=== PATIENT | female | born 1945 | race Caucasian/White ===

== ENCOUNTER 2020-01-28 11:13 | Inpatient (IN) | payer OTHER ==
[~2020-01-28] VITALS: Ht 149.9 cm; Wt 92.3 kg
[2020-01-28] VITALS (21 sets, daily range): BP systolic 57–113; BP diastolic 21–88
--- NOTE | ~2020-01-28 | HC ---
[facility] [place] [address] CONSULTATION Name: OTTO MORTENSEN Room #: 242-P ADM IN M.R.#: [id number] Admission: 01/28/20 Attend Phys: Gaye Forte MD Discharge: Date of : 47 Report #: [id number] THIS REPORT FOR: cc: Morgan Abraham MD,Ortiz Rodarte MD, MD ~ CC: Gaye Cooper DATE OF SERVICE: 01/29/2020 REASON FOR CONSULTATION: Acute kidney injury. REASON FOR PRESENTATION: Acute mental status changes. HISTORY OF PRESENT ILLNESS: Obtained from the medical chart, a 74-year-old who presented with unresponsive status. She saw her primary care physician last week. UA and culture was done. She was told that she had a urinary tract infection. She lives at home with son. He called the EMS concerned about her mom. Of notice is the fact that the patient's daughter was in [place] recently. She visited with her mom for about 36 hours. The patient is known to have chronic kidney disease with an atrophic left kidney and renal artery stenosis. When the patient presented yesterday, she was found to have significant hypotension and creatinine that is significantly above her baseline. I am being consulted to manage her acute kidney injury. Currently, the patient is intubated and not able to provide me with history. PAST MEDICAL HISTORY: Obtained from the medical chart: 1. Hypertension. 2. Hyperlipidemia. 3. Diabetes mellitus. 4. Recurrent C. diff. 5. Sepsis. 6. Urinary tract infections. 7. . 8. Cholecystectomy. 9. Bilateral total knee arthroplasty. 10. Renal artery stenosis. 11. CKD. SOCIAL HISTORY: Lives alone. No reported drug or alcohol abuse. ALLERGIES: AZITHROMYCIN AND DOXYCYCLINE AND PENICILLIN. REVIEW OF SYSTEMS: Unable to obtain given the patient's current mental status. [facility] [address] [place] [address] CONSULTATION Name: OTTO MORTENSEN [id number] Admission: 01/28/20 Attend Phys: Gaye Forte MD Discharge: Date of : 46 Report #: [id number] HOME MEDICATIONS: 1. Torsemide. 2. Crestor. 3. Omeprazole. 4. Metformin. 5. Recent antibiotic that the family is not aware of the name of. REVIEW OF SYSTEMS: Unobtainable given the patient's current mental status. PHYSICAL EXAMINATION: GENERAL: She is now off pressors. VITAL SIGNS: Blood pressure is 94/47. HEAD AND NECK: No jugular venous distention. ET tube in place. CHEST: Decreased air entry bilaterally. CARDIOVASCULAR: No rub detected. ABDOMEN: Soft. EXTREMITIES: Lower extremities, +1 edema. LABORATORY DATA: Values from today revealed a white blood cell count of 10.5, hemoglobin of 9.1. Blood gas of 7.4. Lactate down to 4.9. Sodium is 142, potassium is 3, BUN is 44, creatinine is 2.9. ASSESSMENT, IMPRESSION AND PLAN: 1. Acute kidney injury. 2. Severe metabolic acidosis. 3. Hypokalemia. 4. She now is off pressor and had received significant amount of fluid in the last 24 hours. She was switched to D5W with sodium bicarbonate and I will continue with that for now. 5. Empiric antibiotic had been initiated by the admitting primary team. 6. ID following. 7. Continue to watch urine output, which is significantly better than yesterday. 8. Renal function continues to improve. 9. Pulmonary managing her vent related issues. 10. We will continue to follow. By: [id number] Ortiz Hernandez MD /nt
--- NOTE | ~2020-01-28 | HC ---
[facility] [place] [address] CONSULTATION Name: OTTO MORTENSEN Room #: 242-P ADM IN M.R.#: [id number] Admission: 01/28/20 Attend Phys: Gaye Forte MD Discharge: Date of : 47 Report #: [id number] THIS REPORT FOR: cc: Morgan Abraham MD,Frederick Marion MD, MD ~ CC: Gaye Cooper DATE OF SERVICE: 02/01/2020 HISTORY OF PRESENT ILLNESS: The patient is a 74-year-old white female who was admitted to [facility] on 01/28/2020 with severe sepsis. Noted to have septic shock. She has acute hypoxic respiratory failure, acute renal insufficiency. She has lower abdominal groin cellulitis. She has VRE in her urine. She has been diagnosed with a toxic metabolic encephalopathy. She is currently intubated in the Intensive Care Unit. We are seeing her in rehabilitation medicine consultation. PAST MEDICAL HISTORY: Includes history of multiple admissions for severe sepsis, 6 or 7 admissions in the last 2 years. She has been hospitalized in the last couple of months as well. There is a past history of a questionable prior CVA. She has a history of hypertension, hyperlipidemia, prior pulmonary embolism, and atrial fibrillation. MEDICATIONS: Please see the full medication listing. ALLERGIES: PENICILLIN, SULFA, DOXYCYCLINE, CIPROFLOXACIN AND ZITHROMAX. SOCIAL HISTORY: Lives alone, house, no steps. Premorbid walker ambulator. Daughter is involved. Apparently was on 2 liters nasal prong O2 at night, premorbidly. REVIEW OF SYSTEMS: Difficult that she is rather groggy and does not follow all commands. PHYSICAL EXAMINATION: GENERAL: A 74-year-old white female seen in the Intensive Care Unit. NEUROLOGIC: She is orally intubated and mechanically ventilated. She has an indwelling Lewis catheter and has a rectal tube in place. She will fix and follow. She does follow basic 1 step commands. I can get her to programming manager with both hands with encouragement and she was able to wiggle her toes, both feet. Both her wrists are restrained. Tone appeared to be reasonably intact. She has bilateral prior knee incisions from apparently total knee replacements. She would wiggle her toes and appeared to have reasonable tone of both lower [address] [place] [address] CONSULTATION Name: OTTO MORTENSEN Room #: 242-P [facility] IN ..#: [id number] Admission: 01/28/20 Attend Phys: Gaye Forte MD Discharge: Date of : 47 Report #: [id number] extremities, although I could not get her to really move her extremities to command. ASSESSMENT: A 74-year-old white female with the following problem list: 1. Toxic metabolic encephalopathy. 2. Likely critical illness myopathy. We will need to see how things go with her recovery. 3. Severe sepsis with septic shock. 4. Acute hypoxic respiratory failure, on mechanical ventilation. 5. Acute renal insufficiency. 6. Lower abdominal/groin area cellulitis. 7. History of recurrent sepsis. 8. Diabetes mellitus. 9. History of atrial fibrillation. PLAN: We will ask PT and OT to just do some limited bedside therapies at this point, would like to gradually advance as she further stabilizes. We will be glad to follow along with you regarding her rehab therapy needs. By: 1136 1800 Frederick Bell MD /PAVAN
[2020-01-28 12:11] LABS: ANION GAP 21 mmol/L (7-16); BUN 47 mg/dL (7-18); CALCIUM 8.9 mg/dL (8.5-10.1); CHLORIDE 97 mmol/L (98-107); CO2 16 mmol/L (21-32); CREATININE 3.6 mg/dL (0.6-1.0); GLUCOSE 245 mg/dL (74-106); POTASSIUM 4.6 mmol/L (3.5-5.1); SODIUM 134 mmol/L (136-145)
[2020-01-28 12:20] LABS: ALBUMIN 3.4 g/dL (3.4-5.0); SGOT 95 U/L (15-37); SGPT 33 U/L (30-65); TOTAL BILIRUBIN 0.7 mg/dL (<0.1-1.0); TOTAL PROTEIN 7.8 g/dL (6.4-8.2); TROPONIN-I <0.06 ng/mL (<0.06)
[2020-01-28 12:23] LABS: BASOPHILS 0.3 % (0.0-2.0); EOSINOPHILS 0.1 % (0.0-3.0); HEMATOCRIT 31.3 % (37.0-47.0); HEMOGLOBIN 9.8 gm/dL (12.0-15.0); LYMPHOCYTES 0.7 % (24.0-44.0); MCH 28.2 pg (26.0-34.0); MCHC 31.2 g/dL (28.0-37.0); MCV 90.3 fL (80.0-100.0); MONOCYTES 0.9 % (1.0-8.0); PLATELET COUNT 268 thou/uL (150-400); RBC 3.47 mil/uL (4.20-5.00); RDW 19.3 % (10.5-14.5); WBC 9.1 thou/uL (4.0-11.0)
[2020-01-28 12:38] LABS: ANISOCYTOSIS 2+; OVALOCYTES 1+
[2020-01-28 13:02] LABS: APTT 22.4 Seconds (24.5-32.8); FIBRINOGEN 228.9 mg/dL (210-360); INR 1.2
[2020-01-28] MEDS ORDERED: ROSUVASTATIN CA20 MG PO (13:33)
[2020-01-28] MEDS ORDERED: PROAIR HFA8.5 GM INH (13:33)
[2020-01-28] MEDS ORDERED: METFORMIN HCL500 M3 PO (13:33)
[2020-01-28] MEDS ORDERED: XARELTO15 MG PO (13:34)
[2020-01-28] MEDS ORDERED: SYMBICORT160 MCG/4. INH (13:35)
[2020-01-28] MEDS ORDERED: OMEPRAZOLE20 M1 PO (13:35)
[2020-01-28] MEDS ORDERED: FLONASE 0.05%50 MCG NARES (13:36)
[2020-01-28] MEDS ORDERED: TORSEMIDE20 MG PO (13:36)
[2020-01-28] MEDS ORDERED: FENOFIBRATE160 MG PO (13:36)
[2020-01-28 14:01] LABS: URINE BILIRUBIN NEGATIVE (Negative); URINE BLOOD NEGATIVE (Negative); URINE CLARITY CLEAR; URINE COLOR YELLOW; URINE GLUCOSE-RANDOM* NEGATIVE (Negative); URINE KETONES NEGATIVE (Negative); URINE NITRITE-REFLEX NEGATIVE (Negative); URINE PROTEIN (DIPSTICK) 2+ (Negative); URINE UROBILINOGEN 0.2 E.U./dl (0.2-1.0)
[2020-01-28 14:02] LABS: URINE LEUKOCYTES-REFLEX 1+ (Negative)
[2020-01-28 14:07] LABS: SQUAMOUS >10 Many /LPF (0-3)
[2020-01-28 14:08] LABS: CASTS None Seen /LPF (None Seen)
[2020-01-28 14:09] LABS: BACTERIA-REFLEX 1-9 Few /HPF (None Seen); CRYSTALS None Seen /LPF (None Seen); RENAL EPITHELIAL CELLS 0-3 Few /LPF (None Seen); TRANSITIONAL EPITHEL CELL 0-3 Few /LPF (None Seen); URINE RBC 0-2 Rare /HPF (0-2); URINE WBC-REFLEX 6-15 Few /HPF (0-5)
--- NOTE | 2020-01-28 14:20 | NUR ---
VASCULAR ACCESS CONSULTED FOR PICC LINE, DISCUSSED KIDNEY FCN WITH DR ONEILL, PT IS ANXIOUS AND RESTLESS,PICC DETERMINED SAFER. BP LOW. ORDER,LABS,CONSENT VERIFIED. DISCUSSED BENEFITS AND RISK OF PICC WITH DAUGHTER, VERBALIZED UNDERSTANDING. NIALL CEPHALIC WAS WIDELY PATENT WITH USG. 5FR TL POWER PICC TRIMMED TO 40CM INSERTED TO 0CM. STAT CXR CONFIRMED PLACEMENT AT S[facility]. PICC RELEASED FOR IMMEDIATE USE TO JOON WILSON PER PROTOCOL
[2020-01-28 16:35] LABS: BE(vivo) -15.8 mmol/L (-2 to +3); HCO3 10.9 mmol/L (22.0-26.0); PCO2 28.6 mmHg (35.0-45.0); PO2 377.6 mmHg (80.0-100.0); pH 7.199 (7.360-7.450); sO2 99.7 % (92.0-98.0)
[2020-01-28 20:43] LABS: CALCIUM 6.7 mg/dL (8.5-10.1); POTASSIUM 3.6 mmol/L (3.5-5.1)
[2020-01-28 20:45] LABS: BE(vivo) -9.7 mmol/L (-2 to +3); HCO3 14.3 mmol/L (22.0-26.0); PCO2 25.8 mmHg (35.0-45.0); PO2 361.1 mmHg (80.0-100.0); pH 7.362 (7.360-7.450); sO2 99.8 % (92.0-98.0)
--- NOTE | 2020-01-28 20:57 | NUR ---
PT TO ICU ACCOMPANIED BY DR ALCALA. RESP RATE IN 40-50'S. PURPLISH DISCOLORATION NOTED TO HANDS AND FEET AND COLOR DUSKY. DIFFICULTY OBTAINING BP. PT VERY RESTLESS. DR ALCALA AT BEDSIDE AND DISCUSSED INTUBATION WITH PT'S DAUGHTER AND SHE IS IN AGREEMENT WITH INTUBATION. INTUBATED PT AT 1545. THIERRY PLACED BY DR ALCALA AT 1615. OG TUBE PLACED AT 800ML OF LIGHT GREEN DRAINED QUICKLY THROUGH OG TUBE. CONSULT PLACED TO DR JAFFE. SPOKE WITH HIM BY PHONE AND IV FLUID BOLUSES GIVEN ORDERED. AT [address] JAFFE AND UPDATED ON PT STATUS, GTTS, URINE OUTPUT, AND PREVIOUS ABG'S. PT ON LEVOPHED AND TITRATING TO KEEP MAP >65. ADDITIONAL FLUID BOLUSES ORDERED AND STARTED. ABG'S DONE FOLLOWING INTUBATION AND CRITICAL RESULTS CALLED TO DR ALCALA. 4 AMPS BICARB GIVEN AND STARTED ON BICARB GTT. PT RESTLESS ATTEMTPING TO PULL AT LINES. STARTED ON VERSED GTT AND BILAT WRIST RESTRAINTS PLACED. DISCUSSED WITH PT'S DAUGHTER. SPOT CHECKING CVP AND READING 9 WITH EACH HOURLY CHECK THIS AFTERNOON. LABS SENT AT 1830. RVP AND MRSA SWAB SENT. REPORT GIVEN TO INTERMISSION COORDINATOR RN.
[2020-01-28 23:51] LABS: POTASSIUM 3.2 mmol/L (3.5-5.1)
[2020-01-28 23:59] LABS: CALCIUM 5.9 mg/dL (8.5-10.1)
[2020-01-29] VITALS (19 sets, daily range): BP systolic 83–121; BP diastolic 44–69
[2020-01-29 00:56] LABS: BE(vivo) -6.9 mmol/L (-2 to +3); HCO3 17.2 mmol/L (22.0-26.0); PCO2 29.7 mmHg (35.0-45.0); PO2 246.6 mmHg (80.0-100.0); pH 7.381 (7.360-7.450); sO2 99.6 % (92.0-98.0)
[2020-01-29 03:13] LABS: CALCIUM 7.4 mg/dL (8.5-10.1); POTASSIUM 3.2 mmol/L (3.5-5.1)
[2020-01-29 05:02] LABS: BE(vivo) -2.8 mmol/L (-2 to +3); PCO2 32.8 mmHg (35.0-45.0); PO2 142.1 mmHg (80.0-100.0); pH 7.424 (7.360-7.450); sO2 98.9 % (92.0-98.0)
--- NOTE | 2020-01-29 05:20 | NUR ---
NO OVERNIGHT EVENTS. PT. RESTING WELL WITH LIGHT SEDATION FOR VENT MANAGEMENT. OVERALL PT. IS MORE STABLE, NEEDING LESS BLOOP PRESSURE SUPPORT THROUGHOUT NIGHT AND LESS O2. LESS TACHCARDIC AND TOLERATING ORAL CARE AND TURNS BETTER. ASSESSMENTS AND VITAL SIGNS CHARTED. MEDICATION TITRATION CHARTED. FMS IN PLACE AT THIS TIME FOR FREQUENT MUCOUS LOOSE STOOLS. CDIFF SAMPLE SENT DOWN TO LAB. PT. IS SLOWLY PROGRESSING TOWARDS GOALS. CONTINUE CURRENT POC. WILL CONTINUE TO MONITOR.
[2020-01-29 05:33] LABS: ABSOLUTE NEUTROPHILS 10.2 thou/uL (1.4-8.2); BASOPHILS 0.3 % (0.0-2.0); EOSINOPHILS 0.2 % (0.0-3.0); HEMATOCRIT 28.1 % (37.0-47.0); HEMOGLOBIN 9.1 gm/dL (12.0-15.0); LYMPHOCYTES 0.7 % (24.0-44.0); MCH 28.1 pg (26.0-34.0); MCHC 32.2 g/dL (28.0-37.0); MCV 87.5 fL (80.0-100.0); MONOCYTES 1.8 % (1.0-8.0); RBC 3.22 mil/uL (4.20-5.00); RDW 19.2 % (10.5-14.5); WBC 10.5 thou/uL (4.0-11.0)
[2020-01-29 05:34] LABS: PLATELET COUNT 164 thou/uL (150-400)
[2020-01-29 05:41] LABS: CREATININE 2.9 mg/dL (0.6-1.0)
--- NOTE | 2020-01-29 13:24 | HC ---
[facility] [place] [address] CONSULTATION Name: OTTO MORTENSEN Room #: 242-P ADM IN M.R.#: [id number] Admission: 01/28/20 Attend Phys: Gaye Forte MD Discharge: Date of : 46 Report #: [id number] THIS REPORT FOR: cc: Morgan Abraham MD,Jayant Raymundo MD, MD ~ CC: Gaye Cooper DATE OF SERVICE: 01/28/2020 INFECTIOUS DISEASE CONSULTATION REASON FOR CONSULTATION: I was asked to evaluate concerning septic shock. HISTORY OF PRESENT ILLNESS: The patient is a 74-year-old with underlying coronary artery disease and congestive heart failure with chronic kidney disease and diabetes. She has been in and out of hospital several times in the last year with congestive heart failure and urinary tract infection. Had a prolonged hospitalization in November and has been home only for 2 weeks after that prolonged stay, both acute care and post-acute care. Over the last week, she has had some urinary discomfort. She had a urinalysis and urine culture performed in the outpatient clinic and was called back yesterday with report of possible urinary tract infection and was prescribed nitrofurantoin. She took one dose of this. Last evening, developed dizziness and started vomiting. She has also had liquid stool. Did not report much abdominal pain. History was given by her daughter who was a good historian. She has had no cough or sputum production. She has had pelvic rash; longstanding, which has worsened over the last several days. There has been no chest pain. She describes no peripheral edema. Full 14-point review of system was negative other than what has been described above. The patient does have chronic kidney disease with 60% stenosis of the left renal artery and a poorly functioning left kidney by imaging studies. The patient was visited by her daughter who lives in [place] who stayed with her for 36 hours. She did use precautions with distancing from her mother. Was not ill and did not wear mask. PAST MEDICAL HISTORY: Hypertension, hyperlipidemia, PE, diabetes, recurrent septic episodes with C. difficile colitis, urinary tract infection, congestive heart failure, acute cholecystitis, prior stroke, cholecystectomy, , total knee arthroplasties bilaterally. FAMILY HISTORY: [place] [address] CONSULTATION Name: OTTO MORTENSEN Room #: 242-P [facility] IN .R.#: [id number] Admission: 01/28/20 Attend Phys: Gaye Forte MD Discharge: Date of : 47 Report #: [id number] SOCIAL HISTORY: Lives alone, has a pet dog. Nonsmoker. No significant alcohol intake. No HIV risk factors. No travel. ALLERGIES: AZITHROMYCIN, CIPROFLOXACIN, DOXYCYCLINE, PENICILLIN AND SULFA; reactions not known. MEDICATIONS: As noted on her MAR, which were reviewed; currently on vancomycin and meropenem. PHYSICAL EXAMINATION: VITAL SIGNS: Currently afebrile. Pulse is 133, blood pressure 74/51. GENERAL: It is noted that the patient has not had any fever, chills or sweats predating her hospital stay. SKIN: With intertrigo to her pelvis, both anterior and posterior. She has a fairly large abdominal pannus and there was dermatitis beneath this as well. No other decubiti. No palpable adenopathy. Moderately obese. HEENT: Eyes without scleral icterus. Mouth without mucositis and was dry. NECK: Supple. No thyromegaly or mass. LUNGS: Clear to auscultation. HEART: Tachycardic and regular without appreciable murmur, gallop or rub. ABDOMEN: Mildly distended and mild diffuse tenderness without guarding or rebound. There were no appreciable masses or hepatosplenomegaly. GENITOURINARY: External genitalia without lesion and an indwelling Lewis catheter with clear urine. Perianal examination with hemorrhoids. Rectal examination was not performed. EXTREMITIES: Without clubbing, cyanosis or edema. Was able to move all extremities. NEUROLOGIC: Cranial nerves were intact. Mood was lethargic, but able to follow simple commands. LABORATORY STUDIES: Reviewed. Microbiology reports were reviewed. CT scan of the chest, abdomen and pelvis revealed mild lower lung infiltrates versus atelectasis with mild distention of the stomach and small bowel without definite obstruction, diverticulosis, cardiomegaly with calcified coronary artery disease. No evidence of abscess. No changes consistent with coronavirus. IMPRESSION: 1. Septic shock, source of which is gastrointestinal, most likely with ischemia considering she has had recurring episodes of sepsis. Currently, no evidence of urinary tract obstruction. Her urinalysis was fairly unremarkable. Possible early pulmonary infiltrates or aspiration. At the time of intubation, there was no evidence of foreign body in the upper airways or purulent secretions. [facility] [address] [place] [address] CONSULTATION Name: OTTO MORTENSEN Room #: 242-P [facility] IN M.R.#: [id number] Admission: 01/28/20 Attend Phys: Gaye Forte MD Discharge: Date of : 46 Report #: [id number] 2. Lactic acidosis. 3. Respiratory failure. 4. Encephalopathy. 5. Recurrent urinary tract infections. 6. Hypertrophic left kidney with chronic kidney disease and peripheral vascular disease. 7. Coronary artery disease. RECOMMENDATIONS: We will continue broad antibiotic coverage with nosocomial treatment considering her recent hospital stay. Check viral respiratory panel, sputum, blood, stool and urine cultures. Check C. diff, PCR and treat for such. The patient will require full ICU support. Discussed the case with attending marble finisher and nursing staff along with the patient's family. The patient remains critically ill in this situation. [place] is guarded. <ELECTRONICALLY SIGNED> By: Jayant Colby MD 01/29/20 1324 1613 [id number] Jayant Colby MD /nt
--- NOTE | 2020-01-29 13:35 | NUR ---
SPOKE WITH PT'S DAUGHTER MANJULA BY PHONE THIS AM AND UPDATED HER. TITRATING LEVOPHED AND VASOPRESSIN TO KEEP MAP >60. 1 EPISODE OF PT HAVING SHORT PERIOD OF A FLUTTER IN 70'S AND SBP DROPPED TO 50'S DURING THIS TIME. TITRATED PRESSORS UP AND DR ALCALA NOTIFIED. BP IMPROVED WHEN PT RETURNED TO NSR. RVP NEG. DROPLET ISO DISCONTINUED. PT HAVING LARGE GREEN MUCOUS STOOLS TODAY. SEDATION VACATION ATTEMPTED BUT PT DID NOT TOLERATE. WILL CONTINUE TO MONITOR PATIENT.
[2020-01-29 13:45] LABS: CALCIUM 6.8 mg/dL (8.5-10.1); CREATININE 2.5 mg/dL (0.6-1.0); POTASSIUM 3.3 mmol/L (3.5-5.1)
[2020-01-30] VITALS (69 sets, daily range): BP systolic 84–127; BP diastolic 49–78
[2020-01-30 04:05] LABS: ABSOLUTE NEUTROPHILS 8.5 thou/uL (1.4-8.2); BASOPHILS 0.2 % (0.0-2.0); EOSINOPHILS 0.3 % (0.0-3.0); HEMATOCRIT 27.2 % (37.0-47.0); HEMOGLOBIN 8.8 gm/dL (12.0-15.0); LYMPHOCYTES 2.2 % (24.0-44.0); MCH 28.2 pg (26.0-34.0); MCHC 32.5 g/dL (28.0-37.0); MCV 86.8 fL (80.0-100.0); MONOCYTES 1.5 % (1.0-8.0); PLATELET COUNT 131 thou/uL (150-400); POLYS 95.8 % (36.0-66.0); RBC 3.14 mil/uL (4.20-5.00); RDW 19.6 % (10.5-14.5); WBC 8.8 thou/uL (4.0-11.0)
[2020-01-30 04:37] LABS: ALBUMIN 2.1 g/dL (3.4-5.0); CALCIUM 6.3 mg/dL (8.5-10.1); CREATININE 2.3 mg/dL (0.6-1.0); PHOSPHORUS 3.8 mg/dL (2.5-4.9)
[2020-01-30 04:40] LABS: POTASSIUM 2.5 mmol/L (3.5-5.1)
--- NOTE | 2020-01-30 07:17 | NUR ---
RECIEVED REPORT FROM RADHA. PT SEDATED ON VERSED. REDRAWS FROM PAIN. TOLERATING VENT SETTINGS. TITRATED OF LEVOPHED. CURRENTLY ON VASOPRESSIN FOR BP SUPPORT. URINE OUTPUT GREATER THAN 30CC/HR. INSULIN GTT ONGOING. FMS IN PLACE, OUTPUT NOTED. PT SLOWLY PROGRESSING TOWARDS GOAL. WILL CONTINUE TO MONITOR.
--- NOTE | 2020-01-30 09:36 | NUR ---
pt remains on vent, no family at bedside. will cont following as needed for dc needs. per chart pt independent prior to hospital, with co of dizziness.
--- NOTE | 2020-01-30 09:40 | EKG ---
[facility] [place] [address] ELECTROCARDIOGRAM REPORT Name: OTTO MORTENSEN Room #: 242-P ADM IN M.R.#: [id number] Admission: 01/28/20 Attend Phys: Gaye Forte MD Discharge: Date of : 46 Report #: [id number] THIS REPORT FOR: cc: Morgan Abraham MD, Douglas James MD Lundgren,Juventino Munson MD [facility] ~ THIS REPORT FOR: //name// [facility] ED Test Date: 2020-01-28 Test Time: 11:59:36 Pat Name: OTTO MORTENSEN Department: Room: 242 Gender: F Wood Room Hand: KATHERINE : 1945 Requested By: Vielka Worthy Order Number: [id number] MD: Juventino Trinh Measurements Intervals Caret Rate: 120 P: 0 AL: 176 QRS: -7 QRSD: 74 T: 221 QT: 327 QTc: 462 Interpretive Statements Sinus tachycardia Nonspecific ST segment abnormality No previous ECG available for comparison Electronically Signed On 01-30-2020 9:38:53 CDT by Juventino Trinh [email or web address] <ELECTRONICALLY SIGNED> By: Juventino Trinh MD, FAC 01/30/20 0938 1159 1159 Juventino Trinh MD, [facility] /EPI
--- NOTE | 2020-01-30 10:03 | 2DMMODE ---
[facility] [place] [address] 2 D/M-MODE ECHOCARDIOGRAM Name: OTTO MORTENSEN Room #: 242-P ADM IN M.R.#: [id number] Admission: 01/28/20 Attend Phys: Gaye Forte MD Discharge: Date of : 46 Report #: [id number] THIS REPORT FOR: cc: Morgan Abraham MD, Douglas James MD Mancuso, Gerald M. MD [facility] ~ APPROVED REPORT Study performed: 01/30/2020 09:06:37 EXAM: Comprehensive 2D, Doppler, and color-flow Echocardiogram Patient Location: ICU Room #: 242 Status: routine BSA: 1.86 HR: 75 bpm BP: 110/59 mmHg Rhythm: Atrial Fibrillation Other Information Study Quality: Adequate Indications Congestive Heart Failure Diabetes Atrial Fibrillation 2D Dimensions RVDd: 27.99 mm IVSd: 11.81 (7-11mm) LVOT Diam: 18.80 (18-24mm) LVDd: 39.51 mm PWd: 13.49 (7-11mm) Ascending Ao: 29.64 (22-36mm) LVDs: 30.54 (25-40mm) Aortic Root: 24.79 mm IVC: 18.00 mm Volumes Left Atrial Volume (Systole) Single Plane 4CH: 46.25 mL Single Plane 2CH: 40.33 mL LA ESV Index: 25.00 mL/m2 Aortic Valve AoV Peak Jordin.: 1.09 m/s AO Peak Gr.: 4.79 mmHg LVOT Max P.75 mmHg LVOT Max V: 0.83 m/s [facility] [address] [address] 2 D/M-MODE ECHOCARDIOGRAM Name: OTTO MORTENSEN Room #: 242-P [facility].#: [id number] Admission: 01/28/20 Attend Phys: Vinay Garcia Discharge: Date of : 47 Report #: [id number] SHAKIRA Vmax: 2.10 cm2 Mitral Valve MV Decel. Time: 169.44 ms MV E Max Jordin.: 0.89 m/s IVRT: 95.35 ms Pulmonary Valve PV Peak Jordin.: 0.67 m/s PV Peak Gr.: 1.82 mmHg Tricuspid Valve TR Peak Jordin.: 2.76 m/s TR Peak Gr.: 30.55 mmHg Left Ventricle The left ventricle is normal size. Mild concentric left ventricular hypertrophy. Left ventricular systolic function is borderline. LVEF is 50-55%. This study is not technically sufficient to allow evaluation of the LV diastolic function due to atrial fibrillation. Right Ventricle The right ventricle is normal size. The right ventricular systolic function is normal. Atria The left atrium size is normal. The right atrium size is normal. Aortic Valve The aortic valve is normal in structure. Trace aortic regurgitation. There is no aortic valvular stenosis. Mitral Valve Mild mitral annular calcification. Moderate mitral regurgitation. No evidence of mitral valve stenosis. Tricuspid Valve The tricuspid valve is normal in structure. Moderate to severe tricuspid regurgitation. PAP is estimated at 36-41mmHg. Pulmonic Valve The pulmonary valve is normal in structure. Trace pulmonic regurgitation. Great Vessels [facility] [address] [place] [address] 2 D/M-MODE ECHOCARDIOGRAM Name: OTTO MORTENSEN Room #: 242-P [facility].#: [id number] Admission: 01/28/20 Attend Phys: Vinay Garcia Discharge: Date of : 47 Report #: [id number] The aortic root is normal in size. The inferior vena cava is normal in size; unable to assess inspiratory collapse due to patient on a ventilator. Pericardium There is no pericardial effusion. <Conclusion> The left ventricle is normal size. Left ventricular systolic function is borderline. LVEF is 50-55%. This study is not technically sufficient to allow evaluation of the LV diastolic function due to atrial fibrillation. The right ventricle is normal size. The left atrium size is normal. Trace aortic regurgitation. Mild mitral annular calcification. Moderate mitral regurgitation. Moderate to severe tricuspid regurgitation. PAP is estimated at 36-41mmHg. The aortic root is normal in size. There is no pericardial effusion. <ELECTRONICALLY SIGNED> By: Bobby Baca MD, FACC 01/30/201000 00 00 Bobby Baca MD, [facility] /INF
--- NOTE | 2020-01-30 10:25 | NUR ---
WOUND CONSULT; ROUNDING WITH HARSHAD VILLATORO MSN. LEFT BUTTOCKS WOUNDS IDENTIFIED. LIKLEY SHEARING INJURY E/B IRREGULAR BOARDERS, AND LINIAR LINES. REDISH PINK FWOUND BEDS WITH NO S/S OF INFECTION. THE RIGHT FOREARM HAS TWO BRUISES OR DTI? SKIN IS INTACT. RECOMMENDATIONS; 1- RIGHT F/A PAINT WITH BETADINE. 2- LEFT BUTTOCKS X 2 ZGUARD 3-Q1H TURNING RN PRESENT
[2020-01-30 10:33] LABS: MAGNESIUM 1.9 mg/dL (1.8-2.4)
--- NOTE | 2020-01-30 10:33 | NUR ---
If unable to extubate, recommend start enteral nutrition of vital high protein at goal of 55ml/hr
[2020-01-30 10:58] LABS: BE(vivo) -12.8 mmol/L (-2 to +3); HCO3 10.7 mmol/L (22.0-26.0); PCO2 19.3 mmHg (35.0-45.0); PO2 90.3 mmHg (80.0-100.0); pH 7.361 (7.360-7.450)
[2020-01-30 10:59] LABS: sO2 96.9 % (92.0-98.0)
--- NOTE | 2020-01-30 12:30 | HC ---
[facility] [place] [address] CONSULTATION Name: OTTO MORTENSEN Room #: 242-P ADM IN M.R.#: [id number] Admission: 01/28/20 Attend Phys: Gaye Forte MD Discharge: Date of : 47 Report #: [id number] THIS REPORT FOR: cc: Morgan Abraham MD,Arianna Toure MD, MD ~ CC: Gaye Cooper DATE OF SERVICE: 01/29/2020 ENDOCRINE CONSULTATION NOTE CONSULTING PHYSICIAN: Dr. Gaye Forte. REASON FOR CONSULTATION: Type 2 diabetes mellitus. HISTORY OF PRESENT ILLNESS: This is a 74-year-old female patient whose medical background is significant for multiple medical issues including hypertension, hyperlipidemia, atrial fibrillation, history of PE as well as prior issues with severe sepsis. The patient presented to the ER yesterday with progressive lethargy, tiredness, weakness, dizziness, and was found upon arrival to be in septic shock. The patient was subsequently admitted to the ICU for further care and monitoring. She was shortly thereafter mechanically ventilated as she was in impending respiratory failure with a high respiratory rate. Again, the patient's background is significant for type 2 diabetes mellitus and she is reportedly on a regimen of metformin 500 mg b.i.d. Again, as the patient is currently mechanically ventilated, it was not possible to acquire a sense of her degree of control at home and whether or not she had developed end-organ diabetic complications over the years. The patient is known to have hyperlipidemia and is maintained on rosuvastatin 20 mg daily as well as fenofibrate 160 mg daily. REVIEW OF SYSTEMS: Acquired from medical records, family and staff. CONSTITUTIONAL: Fatigue, tiredness, generalized weakness, but not particular issues with fever or chills. HEENT: Negative for sore throat, sinus pain, ear drainage. PULMONARY: Shortness of breath, cough, but not hemoptysis. CARDIAC: Dizziness, lightheadedness, palpitations, but not chest pain. GASTROINTESTINAL: Abdominal discomfort, nausea, but not vomiting. NEUROLOGY: Dizziness, lightheadedness, generalized weakness. No seizure activity or loss of consciousness. PSYCHIATRIC: No delusions or hallucinations. Otherwise, her review of system [address] [address] CONSULTATION Name: OTTO MORTENSEN Room #: 242-P [facility] IN ..#: [id number] Admission: 01/28/20 Attend Phys: Gaye Forte MD Discharge: Date of : 47 Report #: [id number] is noncontributory unless mentioned in HPI. PAST MEDICAL HISTORY: 1. Type 2 diabetes mellitus. 2. Hyperlipidemia. 3. Hypertension. 4. Atrial fibrillation. 5. History of PE. 6. Recurrent septic episodes. 7. Prior CVA. 8. Asthma. 9. GERD. 10. Congestive heart failure. PAST SURGICAL HISTORY: Cholecystectomy, , knee surgeries. OUTPATIENT MEDICATIONS: Include metformin 500 mg b.i.d., rosuvastatin 20 mg daily, albuterol p.r.n., Xarelto 15 mg daily, omeprazole 20 mg daily, Symbicort for asthma, torsemide 20 mg b.i.d., fenofibrate 160 mg daily, Flonase as needed daily. ALLERGIES: PENICILLIN, AZITHROMYCIN, CIPROFLOXACIN, DOXYCYCLINE AND SULFA. FAMILY HISTORY: Noncontributory. SOCIAL HISTORY: The patient lives alone. There is no report of active tobacco or alcohol use. PHYSICAL EXAMINATION: GENERAL: An elderly female patient who is sedated, ventilated. VITAL SIGNS: Blood pressure is 94/47 mmHg, heart rate is 97 beats per minute, respiration 23 per minute, and temperature 35.9 degrees. CONSTITUTIONAL: The patient is sedated and mechanically ventilated, not in apparent pain or distress. HEENT: Anicteric sclerae. NECK: Supple, no carotid bruits, no thyromegaly. CHEST: Noted for moderate entry bilaterally with scattered rales and rhonchi. HEART: Regular rate and rhythm without murmurs or gallops. ABDOMEN: Soft, lax. No guarding. Active bowel sounds. EXTREMITIES: Lower extremity exam, trace ankle edema bilaterally. No skin breaks or ulcerations. NEUROLOGIC: Sedated, unable to cooperate with neurological examination. PSYCHIATRIC: Sedated, unable to cooperate with psych exam. LABORATORY DATA: Blood glucose on arrival was at 193 and has been consistently under 160 mg/dL on IV insulin use. Sodium 142, potassium 3.0, chloride 106, [place]2 [place] [address] CONSULTATION Name: OTTO MORTENSEN Room #: 242-P [facility] IN ..#: [id number] Admission: 01/28/20 Attend Phys: Gaye Forte MD Discharge: Date of : 47 Report #: [id number] 21, anion gap 15, it was a 21 on arrival. BUN 44, creatinine 2.9, was 3.6 on arrival. Glucose as noted above. Total bilirubin 0.7, calcium 7.0, alkaline phosphatase 53, ALT 33, total protein 7.8, albumin 3.4. Lactic acid 4.0. EGFR 16. Troponin negative. INR 1.2. White blood count 3.22, hemoglobin 9.1, hematocrit 28.1, and platelets 164. Influenza swab negative for influenza A and influenza B. IMAGING DATA: CT scan of the head was noted for no acute intracranial abnormality, but age-related atrophy and mild chronic microvascular ischemia. CT of the abdomen and pelvis is noted for possible gastroenteritis, mild stomach and small bowel fluid distention, bilateral lung mild infiltration versus atelectasis, mild distal colonic diverticulosis, mild cardiomegaly with calcified coronary artery arterial tree limited study somewhat. ASSESSMENT AND PLAN: 1. Type 2 diabetes mellitus. As noted above, the patient has a longstanding history of type 2 diabetes mellitus. Given her current sedated and intubated state, it is not yet possible to get an accurate sense of her degree of control at baseline. However, I will obtain a hemoglobin A1c to better evaluate that aspect. It is noted that the patient is maintained on metformin monotherapy and while her blood glucose values were close to target range on arrival, she was on lactic acidosis and as such, she is certainly not safe to remain on metformin and that would actually amount to future concerns over resuming metformin therapy at any point in time. The patient was appropriately started and maintained on IV insulin therapy with which she is currently under adequate control. Her current insulin requirement ranges 1-2 units per hour intravenously. In the immediate setting, I would like to continue with intravenous insulin support, dextrose support, hourly blood glucose monitoring as per the [facility] intravenous insulin protocol. Once clinical stability is obtained, a consideration will be made to switching the patient over to other lines of therapy. 2. Septic shock. The patient presented in septic shock with a possible urological source. She is currently being medicated with vancomycin. I will defer this aspect of care to the primary team. 3. Respiratory failure. The patient was very tachypneic yesterday with respiratory rate in the 40s, and impending respiratory failure. She was mechanically intubated and continues to be so. The pulmonary team is following. 4. Hyperlipidemia. The patient is maintained on a combination of rosuvastatin and fenofibrate. I would hold off on resuming these until the patient is [facility] [address] [place] [address] CONSULTATION Name: OTTO MORTENSEN Room #: 242-[facility] IN ..#: [id number] Admission: 01/28/20 Attend Phys: Gaye Forte MD Discharge: Date of : 47 Report #: [id number] further stable. 5. Hypocalcemia. This is significant with a normal albumin. I will investigate this further with ionized calcium, vitamin D, and magnesium levels. I have reviewed the patient's clinical care notes, laboratory data, radiologic data and other pertinent information for over 35 minutes. I appreciate this consultation by Dr. Forte. <ELECTRONICALLY SIGNED> By: Arianna Pena MD 01/30/20 1230 1346 [id number] Arianna Pena MD /nt
[2020-01-30 16:34] LABS: CALCIUM 6.8 mg/dL (8.5-10.1); CREATININE 1.8 mg/dL (0.6-1.0); POTASSIUM 3.2 mmol/L (3.5-5.1)
[2020-01-30 22:10] LABS: APTT 29.4 Seconds (24.5-32.8); INR 1.1; PROTIME 11.4 Seconds (9.3-11.4)
[2020-01-31] VITALS (48 sets, daily range): BP systolic 86–132; BP diastolic 51–86
[2020-01-31 05:09] LABS: ALBUMIN 2.1 g/dL (3.4-5.0); CALCIUM 6.5 mg/dL (8.5-10.1); CREATININE 1.5 mg/dL (0.6-1.0); PHOSPHORUS 2.1 mg/dL (2.5-4.9); POTASSIUM 3.5 mmol/L (3.5-5.1)
[2020-01-31 05:40] LABS: HCO3 25.4 mmol/L (22.0-26.0); PCO2 34.9 mmHg (35.0-45.0); PO2 173.6 mmHg (80.0-100.0); sO2 99.3 % (92.0-98.0)
--- NOTE | 2020-01-31 07:00 | NUR ---
Pt remains stable. She still not waking up this morning. Last versed was given at 1940 pm last night. Off pressor since 5 am, so far her MAP has been >65 mmHg. Charlotte TF, accu check obtained per hyperglycemic protocol.FMS inplaced. Start heparin gtt last night, no s/sx of any active bleeding indicates. Monitor APTT per protocol. She is slowly progressing toward goals. Report is hand of to on coming nurse.
--- NOTE | 2020-01-31 14:07 | NUR ---
PT IN ICU WAS NOTIFIED BY SOFIA WITH [facility] THAT PT IS ON SERVICE WITH THEM PRIOR TO ADM. FAXED CLINICAL UPDATE RECEIVED CONFIRMATION. DP TO FOLLOW.
--- NOTE | 2020-01-31 16:47 | NUR ---
PATIENT WILL BE SEEN FOR REHAB CONSULT BY DOCTOR CHINCHILLA OR GALO MCMANUS NP WITH DR. CHINCHILLA, AFTER PATIENT TRANSERS OUT OF ICU. WILL CONTINUE TO FOLLOW. THANK YOU FOR THIS REFERRAL.
--- NOTE | 2020-01-31 18:40 | NUR ---
RECEIVED PT'S CARE AROUND 0700; PT. ON BED; INTUBATED; RESPONSED TO PAIN; DURING AM ASSESSMENT PT. DROWSY; SEDATION STOPPED THE NIGHT BEFORE PER REPORT; VS WNL; AM MEDICATIONS; FEEDING RATE ADJUSTED TO GOAL AT NOON; WATER FLUSHED; INSULIN GTT TITRATE BASE ON BS; CHECK CHARTING; HEPARIN GTT ADJUSTED BASED ON APTT; CHECK CHARTING; THROUGH THE DAY TURNED FROM SIDE TO SIDE Q1H; WOUND CARE PERFORMED; FEEDING RESIDUAL 40 ML; DURING AFTERNOON PT. ABLE TO OPEN EYES WHILE TURNING; ST. NO PAIN; ASKED IF KNOWN WHERE SHE IS; PT. SHAKE HEAD FROM SIDE TO SIDE; NOTIFIED ABOUT BEING IN THE HOSPITAL DUE TO INFECTION; PT. CLOSE EYES; ASSESSMENT CHARGED; FOLLOWING POC; WILL PASS ON REPORT;
[2020-02-01] VITALS (24 sets, daily range): BP systolic 111–158; BP diastolic 56–91
[2020-02-01 04:27] LABS: HEMATOCRIT 26.4 % (37.0-47.0); HEMOGLOBIN 8.2 gm/dL (12.0-15.0); MCH 27.3 pg (26.0-34.0); MCHC 31.1 g/dL (28.0-37.0); MCV 87.7 fL (80.0-100.0); RBC 3.01 mil/uL (4.20-5.00); RDW 19.7 % (10.5-14.5); WBC 6.6 thou/uL (4.0-11.0)
[2020-02-01 04:52] LABS: CALCIUM 7.6 mg/dL (8.5-10.1); CREATININE 1.2 mg/dL (0.6-1.0)
[2020-02-01 04:53] LABS: POTASSIUM 2.3 mmol/L (3.5-5.1)
--- NOTE | 2020-02-01 05:13 | NUR ---
PT MAKING PROGRESS TOWARDS GOALS. ON VENTILATOR OVERNIGHT. NO VENTILATOR ALARMS NOTED. PT OPENING EYE SPONTANEOUSLY, TRACKING WITH HER EYES WELL. PT ABLE TO FOLLOW INSTRUCTIONS ACCURATELY, TO SQUEEZE MY HAND, LET GO AND MAKE A FIST. URINE OUTPUT CLEAR AND YELLOW. NOTED URINE CX REPORT FROM YESTERDAY MORNING REPORTS "VRE." CONTACT ISOLATION STARTED. PT TOLERATING TUBE FEEDING. MAX RESIDUAL NOTED TO BE 30ML. SEE CHARTING.
--- NOTE | 2020-02-01 10:40 | NUR ---
WOUND CARE F/U; ROUNDING WITH RN TODAY. THE LEFT BUTTOCKS WOUND SHOW GREAT IMPROVEMENT. NO S/S OF INFECTION. NO CHANGES RN PRESENT
[2020-02-01 10:54] LABS: APTT 42.7 Seconds (24.5-32.8); INR 1.1; PROTIME 10.9 Seconds (9.3-11.4)
[2020-02-02] VITALS (24 sets, daily range): BP systolic 115–152; BP diastolic 51–93
[2020-02-02 05:37] LABS: CALCIUM 8.3 mg/dL (8.5-10.1)
[2020-02-02 05:48] LABS: POTASSIUM 2.4 mmol/L (3.5-5.1)
--- NOTE | 2020-02-02 06:09 | NUR ---
ASSUMED PT CARE AT 1900. VSS. PT INTUBATED BUT NOT SEDATED. CAN FOLLOW COMMANDS, WRITES ON BOARD TO COMMUNICATES NEEDS. INSULIN GTT TITRATED PRN. PT K HAS BEEN CRITICALL ALL NOC, REPLACEMENT ONGOING. PT HAD OVER 4200ML OUT THIS SHIFT FROM [facility]. PT IS STABLE AT THIS TIME. WILL CONTINUE TO CLOSE;Y MONITOR. PT APPEARS TO BE PROGRESSING WELL TOWARDS POC.
--- NOTE | 2020-02-02 11:21 | NUR ---
PT DISCHARGING TODAY TO HOME AT [facility] WITH ALY MOMIN. FAXED DC ORDERS/SUMMARY SPOKE WITH LEELA IN INTAKE SHE RECEIVED ORDERS AND WILL NOTIFY PT TIME OF VISITS.
--- NOTE | 2020-02-02 11:44 | NUR ---
discussed during los, possible be ready for rehab or post acute over weekend. pt still on vent, possible weaning trails. 5n will eval after pt is off vent. will cont following as needed for dc needs.
[2020-02-02 11:49] LABS: BE(vivo) 5.9 mmol/L (-2 to +3); HCO3 28.9 mmol/L (22.0-26.0); PCO2 35.9 mmHg (35.0-45.0); PO2 125.2 mmHg (80.0-100.0); pH 7.524 (7.360-7.450); sO2 98.8 % (92.0-98.0)
--- NOTE | 2020-02-02 12:08 | NUR ---
5N CONSULT RECEIVED ON THIS Pt AND Cirilo HAS BEEN FOLLOWING. Pt STILL ON THE VENTILATOR BUT PLANNING TO WORK ON WEANING TRIALS. WILL CONTINUE TO FOLLOW AND DETERMINE WHETHER Pt WOULD BE A GOOD CANDIDATE FOR 5N ONCE EXTUBATED AND WORKING WITH THERAPIES.
[2020-02-02 12:29] LABS: HEMATOCRIT 28.8 % (37.0-47.0); HEMOGLOBIN 9.4 gm/dL (12.0-15.0); MCH 28.2 pg (26.0-34.0); MCHC 32.6 g/dL (28.0-37.0); MCV 86.3 fL (80.0-100.0); RBC 3.33 mil/uL (4.20-5.00); RDW 20.1 % (10.5-14.5)
[2020-02-02 12:33] LABS: CALCIUM 8.2 mg/dL (8.5-10.1); POTASSIUM 3.2 mmol/L (3.5-5.1)
[2020-02-02 18:07] LABS: HIV ANTIBODY Non Reactive (Non Reactive)
[2020-02-03] VITALS (14 sets, daily range): BP systolic 108–142; BP diastolic 49–83
[2020-02-03 06:25] LABS: CALCIUM 7.4 mg/dL (8.5-10.1); CREATININE 0.9 mg/dL (0.6-1.0); POTASSIUM 3.3 mmol/L (3.5-5.1)
--- NOTE | 2020-02-03 06:45 | NUR ---
PATIENT ALERT AND ORIENTED X4, PAIN CONTROLLED WITH MEDICATION. ON 2L THROUGHOUT THE NIGHT, 02 SAT REMAINED ABOVE 92. BLOOD SUGAR CLOSELY MONITORED. SAN CATHETER OUTPUT DECREASED FROM PREVIOUS SHIFT, GREATER THAN 30ML/HR. RECTAL TUBE IN PLACE. SPOKE TO DR. ROSALES ABOUT PLAN OF CARE. NO SIGN OF ACUTE DISTRESS NOTED AT THIS TIME. WILL CONTINUE TO MONITOR.
--- NOTE | 2020-02-03 08:45 | NUR ---
noted from unite pt up in bed, off vent, o2 per nasal cannula, noted her waving at staff on unite. per report from bedside nurse, still on insulin drip and st eval for diet. 5n is consulted and following. will cont following as needed for dc needs.
--- NOTE | 2020-02-03 09:42 | NUR ---
WOUND CARE F/U; ROUNDING TODAY WITH HARSHAD WHITTINGTON. THE PATIENT IS MUCH IMPROVED TALKING ANE EATING. SHE WILL BE MOVING OUT OF ICU TODAY. THE RIGHT BUTTOCKS WOUNDS ARE STABLE AND CLINICALLY BETTER. THE RIGHT FORARM AREA SUSPICIOUS OF A DTI SHOWS IMPROVEMENT AND LIKELY NOT A DTI. RECOMMENDATINS; CONTINUE CURRENT POC RN PRESENT
--- NOTE | 2020-02-03 14:33 | NUR ---
5N CONSULT RECEIVED ON THIS Pt. Pt SEEN BY DR. CHINCHILLA AND GALO MCMANUS NP. [facility] IS IN-NETWORK WITH Pt'S INSURANCE CONFIRMED BY FRIEDA Hinkle FROM [facility]. SUBMITTED FOR ACUTE INPATIENT REHAB AUTHORIZATION AND RECEIVED REF #[id number]. FAXED CLINICAL INFORMATION THAT WAS REQUESTED TO [phone]. RECEIVED CALL BACK FROM MARYANNE AT [facility] WHO REPORTED THAT SINCE Pt IS NOT MEDICALLY STABLE FOR D/C FROM ACUTE HOSPITAL YET, THAT THIS AUTHORIZATION WOULD BE CLOSED OUT. MARYANNE REQUESTED THAT AUTHORIZATION BE REQUESTED AGAIN ON THURSDAY. WILL CONTINUE TO FOLLOW Pt AND FOLLOW UP WITH [facility] ON THURSDAY.
--- NOTE | 2020-02-03 14:38 | NUR ---
PHONE NUMBER FOR MARYANNE AT [facility] IS [phone].
--- NOTE | 2020-02-03 16:22 | NUR ---
PT VSS THROUGH OUT SHIFT. DR. ONEILL ROUNDED, ORDERS FOR CCT. WORKED WITH PT/OT. UP TO THE CHAIR THROUGH OUT DAY. EVAL BY SPEECH. CLEARED FOR DIET. LONG ACTING INSULIN GIVEN. ORDERS TO TURN OFF INSULIN GTT AND FLUIDS OFF. PT WILL TRANSFER TO [facility]. REPORT GIVEN TO MESERET WILSON. OFFERED TO CALL PTS DAUGHTER AND NOTIFY OF ROOM CHANGE, PATIENT STATES SHE ALREADY SPOKE WITH DAUGHTER.
--- NOTE | 2020-02-04 02:37 | NUR ---
ASSUMED CARE OF PATIENT AT 1900. VSS, AFEBRILE. C/O PAIN IN PERIAREA AND BUTTOCKS. PAIN MEDS GIVEN, STATES RELIEF. RESTING AT THIS TIME. PROGRESSING SLOWLY. WILL CONTINUE TO MONITOR.
[2020-02-04 04:12] VITALS: BP 134/63
[2020-02-04 04:25] VITALS: BP 134/63
[2020-02-04 08:42] VITALS: BP 135/61
[2020-02-04 12:30] VITALS: BP 113/58
--- NOTE | 2020-02-04 13:29 | NUR ---
PT A&OX4, VSS, DENIES PAIN. SAN AND FECAL SYSTEM REMAIN IN PLACE. NO SIGNS OF DISTRESS, PATIENT TURNED OFTEN. WILL CONTINUE TO MONITOR.
[2020-02-04 15:52] LABS: ABSOLUTE NEUTROPHILS 4.2 thou/uL (1.4-8.2); BASOPHILS 0.1 % (0.0-2.0); EOSINOPHILS 0.1 % (0.0-3.0); HEMATOCRIT 26.7 % (37.0-47.0); HEMOGLOBIN 8.8 gm/dL (12.0-15.0); LYMPHOCYTES 10.1 % (24.0-44.0); MCH 28.4 pg (26.0-34.0); MCHC 32.8 g/dL (28.0-37.0); MCV 86.6 fL (80.0-100.0); MONOCYTES 8.4 % (1.0-8.0); PLATELET COUNT 149 thou/uL (150-400); POLYS 81.3 % (36.0-66.0); RBC 3.09 mil/uL (4.20-5.00); RDW 19.7 % (10.5-14.5); WBC 5.2 thou/uL (4.0-11.0)
[2020-02-04 16:09] LABS: ALBUMIN 2.4 g/dL (3.4-5.0); CALCIUM 8.1 mg/dL (8.5-10.1); CREATININE 0.9 mg/dL (0.6-1.0); POTASSIUM 3.1 mmol/L (3.5-5.1); TOTAL BILIRUBIN 0.5 mg/dL (<0.1-1.0); TOTAL PROTEIN 5.9 g/dL (6.4-8.2)
[2020-02-04 16:12] LABS: INR 1.2; PROTIME 12.6 Seconds (9.3-11.4)
[2020-02-04 16:23] LABS: ANISOCYTOSIS 2+; LARGE PLATELETS OCCASIONAL; POLYCHROMASIA OCCASIONAL
[2020-02-04 17:23] VITALS: BP 112/54
[2020-02-04 19:02] LABS: URINE BILIRUBIN NEGATIVE (Negative); URINE BLOOD TRACE (Negative); URINE CLARITY CLEAR; URINE COLOR YELLOW; URINE GLUCOSE-RANDOM* NEGATIVE (Negative); URINE KETONES NEGATIVE (Negative); URINE LEUKOCYTES-REFLEX NEGATIVE (Negative); URINE NITRITE-REFLEX NEGATIVE (Negative); URINE PROTEIN (DIPSTICK) NEGATIVE (Negative); URINE SPECIFIC GRAVITY <= 1.005 (1.005-1.035); URINE UROBILINOGEN 0.2 E.U./dl (0.2-1.0)
[2020-02-04 19:58] VITALS: BP 134/56
[2020-02-05 04:53] VITALS: BP 119/73
--- NOTE | 2020-02-05 07:00 | NUR ---
Pt. rested quietly at intervals during the night when checked on during frequent rounds. She c/o right groin pain and ivp pain medication given with some relief noted (see emar). Pt. turned and repositioned. Medicated cream applied to excortiated buttocks. Fecal management system is in place and intact. Bed alarm is on.
[2020-02-05 07:41] VITALS: BP 106/47
[2020-02-05 11:12] VITALS: BP 125/64
[2020-02-05 14:57] VITALS: BP 124/63
--- NOTE | 2020-02-05 19:32 | NUR ---
PT ALERT AND ORIENTED TIMES FOUR. VSS, PT C/O PAIN PRN PAIN MEDICATIONS CONTROLLING PAIN WELL. IFV INFUSING PER ORDER. PT TOLERATES MEDS AND MEDS. PT PROGRESSING TOWRADS POC GOALS.
[2020-02-06 05:07] VITALS: BP 119/47
--- NOTE | 2020-02-06 06:00 | NUR ---
Pt. rested quietly at intervals during the night when checked on during frequent rounds. She c/o back pain and ivp pain meds given (see emar) with some relief of pain noted. Pt. turned and repositioned. Bed alarm is on.
[2020-02-06 06:33] LABS: ABSOLUTE NEUTROPHILS 3.1 thou/uL (1.4-8.2); BASOPHILS 0.2 % (0.0-2.0); EOSINOPHILS 4.3 % (0.0-3.0); HEMATOCRIT 24.4 % (37.0-47.0); HEMOGLOBIN 7.8 gm/dL (12.0-15.0); LYMPHOCYTES 23.3 % (24.0-44.0); MCH 28.3 pg (26.0-34.0); MCHC 32.1 g/dL (28.0-37.0); MONOCYTES 9.4 % (1.0-8.0); PLATELET COUNT 156 thou/uL (150-400); POLYS 62.8 % (36.0-66.0); RBC 2.78 mil/uL (4.20-5.00); WBC 4.9 thou/uL (4.0-11.0)
[2020-02-06 06:54] LABS: CALCIUM 7.9 mg/dL (8.5-10.1); CREATININE 0.8 mg/dL (0.6-1.0); MAGNESIUM 1.1 mg/dL (1.8-2.4); PHOSPHORUS 3.5 mg/dL (2.5-4.9); POTASSIUM 3.1 mmol/L (3.5-5.1)
[2020-02-06 07:20] VITALS: BP 110/40
[2020-02-06 11:58] VITALS: BP 117/55
--- NOTE | 2020-02-06 12:19 | NUR ---
NOY reviewed chart and spoke with nursing and attending physician. Pt was transferred to from ICU on 02/02 and is progressing towards goals for discharge. Pt is medically stable for discharge to post-acute care. NOY discussed case with 5N vocational rehab consultant, who will submit for insurance authorization today. NOY attempted to speak with pt via phone to discuss post-acute plans to discuss SNF preference if insurance does not authorize inpt acute rehab. Pt has been to [facility] SNF in the past. NOY left voice message for pt's dtr, Otilia, to discuss discharge. Awaiting input from insurance at this time. NOY is following to assist as needed with discharge planning.
--- NOTE | 2020-02-06 12:38 | NUR ---
REC considering addition of Vitamin D supplement as pt's vitamin D levels found to be deficient at 19.5 ng/ml per 01/27 labs this admit.
--- NOTE | 2020-02-06 13:49 | NUR ---
REQUEST FOR ACUTE REHAB AUTHORIZATION INITIATED WITH PATIENT'S INSURER, [employer], THIS DATE. WILL AWAIT RESPONSE. SOICAL WORKER INFORMED OF STATUS. THANK YOU FOR THIS REFERRAL.
[2020-02-06 15:08] VITALS: BP 129/62
--- NOTE | 2020-02-06 15:27 | NUR ---
WOUND CARE F/U; THE RIGHT FORARM WAS SUGGESTIVE OF A DTI AND TODAY MY ASSESSMENT IT IS JUST A BRUISE. THE WOUNDS TO THE RIGHT BUTTOCKS ARE MUCH IMPROVED WITH HEALTHY WOUND BEDS. RECOMMENDATION; CONTINUE CURRENT TREATMENT. DISCUSSED WITH KATIE
--- NOTE | 2020-02-06 16:30 | NUR ---
REQUEST FOR INSURANCE AUTHORIZATION MADE TO PATIENT'S INSURANCE THIS DATE. CALL RECEIVED THIS AFTERNOOON FROM MARYANNE AT [employer] WITH DENIAL FOR ACUTE REHAB ADMISSION. CLASSIFICATIONS OFFICER CC/CM INFORMED. PEER TO PEER, IF DESIRED, MUST BE COMPLETED BY NOON ON 02/07/20. TO SET UP PEER TO PEER CALL [phone] OPTION 4. SNF HAS BEEN APPROVED IF REQUESTED WITHIN THE NEXT 48 HOURS.
[2020-02-06 20:06] VITALS: BP 127/58
[2020-02-07 04:18] VITALS: BP 126/58
[2020-02-07 07:24] VITALS: BP 136/57
[2020-02-07] MEDS ORDERED: K-DUR 20 MEQ T20 MEQ PO (09:11)
[2020-02-07] MEDS ORDERED: NYAMYC15 GM TOP (09:12)
[2020-02-07] MEDS ORDERED: TRADJENTA5 MG PO (09:12)
[2020-02-07] MEDS ORDERED: LANTUS SUBQ (09:12)
--- NOTE | 2020-02-07 10:56 | NUR ---
SW was notified by 5N rehab consultant yesterday afternoon that insurance denied inpt acute rehab. Option for peer to peer provided. SW notified attending physician yesterday afternoon. SW contacted attending physician this morning to provide info to do peer to peer ([phone], option 4. Pending auth # [id number]). Awaiting input from physician at this time. NOY spoke with pt via phone to discuss SNF placement. Pt has been to [facility] in the past and is agreeable with returning to [facility]. Pt's dtr has also suggested [facility] and [facility] due to location. Visitors may not be allowed in the facilities at this time. Pt is agreeable with plan for referrals to SNFs wih beds available. SW contacted the three SNFs, awaiting bed availability at this time. NOY also spoke with pt's dtrOtilia, via phone to provide update. Will need insurance authorization for post-acute placement. NOY is following to assist as needed with discharge planning.
[2020-02-07 11:26] VITALS: BP 122/58
[2020-02-07 16:20] VITALS: BP 124/61
--- NOTE | 2020-02-07 16:42 | NUR ---
FAXED REFERRAL TO [facility] RECEIVED CONFIRMATION AND SW (ALTON) SPOKE WITH ADM. AND THEY ARE NOT ABLE TO ACCEPT DUE TO PT'S DTR TRAVELED TO [facility] RECENTLY. DP TO FOLLOW.
[2020-02-07 19:25] VITALS: BP 128/46
[2020-02-08 03:48] VITALS: BP 121/70
[2020-02-08 07:30] VITALS: BP 124/63
--- NOTE | 2020-02-08 07:42 | NUR ---
PT MAKING PROGRESS TOWARDS GOALS. URINE OUT PUT 2200ML, YELLOW IN COLOR WITHOUT CLOUDINESS OR OBSERVABLE SEDIMENT. PT DENIES ANY SOA WHILE AT REST. AFEBREILE THROUGHOUT THE NIGHT.
[2020-02-08 11:39] VITALS: BP 113/54
--- NOTE | 2020-02-08 13:41 | NUR ---
DISCHARGE NOTE: NOY reviewed chart and spoke with nursing. NOY was notified that [facility] was unable to accept pt due to pt's dtr's recent travel to from [place]. NOY spoke with pt's dtr, Otilia, via phone. Pt's last contact with her dtr (not Otilia) was on 01/26. Pt's sister has not had any symptoms since that time. NOY discussed with ID physician. Pt had a test done upon admission. NOY faxed test results and updates to [facility] and spoke with Chaya in admissions. Per Chaya, they are able to accept pt and they did receive insurance authorization. Wheelchair van transportation scheduled for 1500 this afternoon. NOY updated pt's nurse and provided number for report. Chart copy requested. NOY spoke with pt via phone to notify of discharge. Pt is aware and in agreement with plan. NOY spoke with pt's dtr, Otilia, via phone to provide update. Otilia will contact facility to see if she can bring pt some clothes/personal belongings. No additional SW needs identified at this time, but is available to assist should needs arise. REY LADD--
== END 2020-02-08 15:26 | DRG 870 ==
LOC: ER 11:13 → EROBS 12:50 → ICU 12:50 → 3W 02-03 17:10
PROVIDERS: Hospitalist; Internal Medicine; Internal Medicine Pulmonary Disease; Pediatrics; Physician Assistant; Specialist; ADMIT Hospitalist
PROC: 5A1955Z Respiratory Ventilation, Greater than 96 Consecutive Hours (ICD-10-PCS; principal; 2020-01-28)
PROC: 02HV33Z Insertion of Infusion Device into Superior Vena Cava, Percutaneous Approach (ICD-10-PCS; principal; 2020-01-28)
PROC: 0BH17EZ Insertion of Endotracheal Airway into Trachea, Via Natural or Artificial Opening (ICD-10-PCS; principal; 2020-01-28)
PROC: 03HY32Z Insertion of Monitoring Device into Upper Artery, Percutaneous Approach (ICD-10-PCS; principal; 2020-01-28)
DX: A41.9 Sepsis, unspecified organism (principal); R65.21 Severe sepsis with septic shock; J18.9 Pneumonia, unspecified organism; G92 Toxic encephalopathy; J96.01 Acute respiratory failure with hypoxia; E11.10 Type 2 diabetes mellitus with ketoacidosis without coma; G72.81 Critical illness myopathy; N17.9 Acute kidney failure, unspecified; N39.0 Urinary tract infection, site not specified; L03.311 Cellulitis of abdominal wall; E87.1 Hypo-osmolality and hyponatremia; L03.314 Cellulitis of groin; Z68.41 Body mass index [BMI] 40.0-44.9, adult; I13.0 Hypertensive heart and chronic kidney disease with heart failure and stage 1 through stage 4 chronic kidney disease, or unspecified chronic kidney disease; I50.9 Heart failure, unspecified; E78.5 Hyperlipidemia, unspecified; Z96.653 Presence of artificial knee joint, bilateral; I25.10 Atherosclerotic heart disease of native coronary artery without angina pectoris; I73.9 Peripheral vascular disease, unspecified; N18.9 Chronic kidney disease, unspecified; Z60.2 Problems related to living alone; E87.6 Hypokalemia; K21.9 Gastro-esophageal reflux disease without esophagitis; I48.91 Unspecified atrial fibrillation; E87.8 Other disorders of electrolyte and fluid balance, not elsewhere classified; E66.9 Obesity, unspecified; I70.1 Atherosclerosis of renal artery; D64.9 Anemia, unspecified; D69.6 Thrombocytopenia, unspecified; Z88.1 Allergy status to other antibiotic agents; Z88.0 Allergy status to penicillin; Z88.2 Allergy status to sulfonamides; Z88.8 Allergy status to other drugs, medicaments and biological substances; Z86.711 Personal history of pulmonary embolism; Z86.73 Personal history of transient ischemic attack (TIA), and cerebral infarction without residual deficits; Z90.49 Acquired absence of other specified parts of digestive tract; E11.22 Type 2 diabetes mellitus with diabetic chronic kidney disease
CPT/HCPCS: 10078; 10879; 27000; 85026

== ENCOUNTER 2020-04-03 22:21 | Emergency (ER) | payer OTHER ==
[~2020-04-03] VITALS: Ht 149.9 cm; Wt 90.3 kg
[~2020-04-03 22:21] MED LIST: FENOFIBRATE160 MG PO; FLONASE 0.05%50 MCG NARES; K-DUR 20 MEQ T20 MEQ PO; LANTUS SUBQ; METFORMIN HCL500 M3 PO; NYAMYC15 GM TOP; OMEPRAZOLE20 M1 PO; PROAIR HFA8.5 GM INH; ROSUVASTATIN CA20 MG PO; SYMBICORT160 MCG/4. INH; TORSEMIDE20 MG PO; TRADJENTA5 MG PO; XARELTO15 MG PO
[2020-04-03 23:03] LABS: URINE BILIRUBIN NEGATIVE (Negative); URINE BLOOD NEGATIVE (Negative); URINE CLARITY CLEAR; URINE COLOR YELLOW; URINE GLUCOSE-RANDOM* NEGATIVE (Negative); URINE KETONES NEGATIVE (Negative); URINE NITRITE-REFLEX NEGATIVE (Negative); URINE PROTEIN (DIPSTICK) NEGATIVE (Negative); URINE UROBILINOGEN 0.2 E.U./dl (0.2-1.0)
[2020-04-03 23:03] LABS: ABSOLUTE NEUTROPHILS 5.3 thou/uL (1.4-8.2); EOSINOPHILS 2.2 % (0.0-3.0); HEMATOCRIT 27.8 % (37.0-47.0); HEMOGLOBIN 8.8 gm/dL (12.0-15.0); LYMPHOCYTES 13.2 % (24.0-44.0); MCH 25.9 pg (26.0-34.0); MCHC 31.7 g/dL (28.0-37.0); MCV 81.9 fL (80.0-100.0); MONOCYTES 10.7 % (1.0-8.0); PLATELET COUNT 334 thou/uL (150-400); POLYS 72.9 % (36.0-66.0); RBC 3.39 mil/uL (4.20-5.00); RDW 19.1 % (10.5-14.5); WBC 7.3 thou/uL (4.0-11.0)
[2020-04-03 23:04] LABS: URINE LEUKOCYTES-REFLEX 1+ (Negative)
[2020-04-03 23:09] LABS: CALCIUM 9.2 mg/dL (8.5-10.1); CREATININE 1.5 mg/dL (0.6-1.0); POTASSIUM 4.1 mmol/L (3.5-5.1)
[2020-04-03 23:11] LABS: BACTERIA-REFLEX 1-9 Few /HPF (None Seen); CASTS None Seen /LPF (None Seen); CRYSTALS None Seen /LPF (None Seen); SQUAMOUS 0-3 Few /LPF (0-3); URINE RBC None Seen /HPF (0-2); URINE WBC-REFLEX 0-5 Rare /HPF (0-5)
[2020-04-03 23:15] LABS: ALBUMIN 3.8 g/dL (3.4-5.0); TOTAL BILIRUBIN 0.8 mg/dL (<0.1-1.0)
[2020-04-03] MEDS ORDERED: DEMADEX20 MG PO (23:36)
[2020-04-03] MEDS ORDERED: ROSUVASTATIN CA40 MG PO (23:38)
[2020-04-03] MEDS ORDERED: FOLIC ACID0.4 MG PO (23:39)
[2020-04-03] MEDS ORDERED: MAGNESIUM400 M1 PO (23:39)
[2020-04-03] MEDS ORDERED: VITAMIN E400 UNI5 PO (23:40)
[2020-04-04] MEDS ORDERED: BASAGLAR K100 UNIT/1 SUBQ (00:13)
[2020-04-04 01:08] VITALS: BP 120/57
--- NOTE | 2020-04-04 08:07 | EKG ---
[facility] [place] [address] ELECTROCARDIOGRAM REPORT Name: OTTO MORTENSEN Room #: DEP [facility]#: [id number] Admission: 04/03/20 Attend Phys: Discharge: 04/04/20 Date of : 47 Report #: [id number] THIS REPORT FOR: cc: Morgan Abraham MD, Douglas James MD Lundgren,Juventino Munson MD [facility] ~ THIS REPORT FOR: //name// [facility] ED Test Date: 2020-04-03 Test Time: 22:47:37 Pat Name: OTTO MORTENSEN Department: Room: Gender: F State Assessed Properties Director: ANICETO : 1945 Requested By: Jayant Acevedo Order Number: [id number] MD: Juventino Trinh Measurements Intervals [place] Rate: 103 P: -30 MI: 232 QRS: 12 QRSD: 85 T: 48 QT: 325 QTc: 426 Interpretive Statements Sinus tachycardia Prolonged MI interval Nonspecific ST segment abnormality Compared to ECG 01/28/2020 11:59:36 First degree AV block now present Electronically Signed On 04-04-2020 8:05:45 CDT by Juventino Trinh [email or web address] <ELECTRONICALLY SIGNED> By: Juventino Trinh MD, [facility] 04/04/20 0805 2247 Juventino Trinh MD, [facility] /EPI
== END 2020-04-04 01:45 | disposition home or self-care (01) ==
LOC: ER 22:21
PROVIDERS: Emergency Medicine
DX: R50.9 Fever, unspecified (principal); I11.0 Hypertensive heart disease with heart failure; I50.9 Heart failure, unspecified; E11.9 Type 2 diabetes mellitus without complications; E66.9 Obesity, unspecified; J45.909 Unspecified asthma, uncomplicated; Z20.828 Contact with and (suspected) exposure to other viral communicable diseases; Z68.41 Body mass index [BMI] 40.0-44.9, adult; Z87.440 Personal history of urinary (tract) infections; Z86.711 Personal history of pulmonary embolism; Z90.49 Acquired absence of other specified parts of digestive tract; Z98.890 Other specified postprocedural states; Z88.0 Allergy status to penicillin; Z88.1 Allergy status to other antibiotic agents; Z88.2 Allergy status to sulfonamides; Z88.8 Allergy status to other drugs, medicaments and biological substances